=== PATIENT | female | born 1995 | race Caucasian/White ===

== ENCOUNTER 2017-02-25 23:26 | Emergency (ER) | payer OTHER ==
[2017-02-26 02:58] VITALS: BP 130/80
== END 2017-02-26 02:58 | disposition home or self-care (01) ==
LOC: ED 23:26
DX: S83.92XA Sprain of unspecified site of left knee, initial encounter (principal); I10 Essential (primary) hypertension; D35.2 Benign neoplasm of pituitary gland; Z79.899 Other long term (current) drug therapy; Z88.2 Allergy status to sulfonamides; Z88.6 Allergy status to analgesic agent; X50.1XXA Overexertion from prolonged static or awkward postures, initial encounter; Y93.89 Activity, other specified; Y92.89 Other specified places as the place of occurrence of the external cause; Y99.8 Other external cause status
CPT/HCPCS: Q0092

== ENCOUNTER 2018-01-15 17:11 | Emergency (ER) | payer OTHER ==
[~2018-01-15] VITALS: Ht 152.4 cm; Wt 42.2 kg
[2018-01-15 17:13] VITALS: Ht 152.4 cm; Wt 42.2 kg
[2018-01-15 18:05] LABS: BASOPHIL % 0.1 % (0-2); PLATELET COUNT 218 x10^3mcL (130-400); RED CELL DISTRIBUTION WIDTH 13.5 % (11.5-14.5)
[2018-01-15 18:13] LABS: microscopic required? YES; urine erythrocyte 2+ (NEGATIVE)
[2018-01-15 18:20] LABS: CALCIUM 8.4 mg/dL (8.5-10.1); CHLORIDE SERUM 107 mmol/L (98-107); CREATININE SERUM 0.8 mg/dL (0.6-1.0); GFR1 > 60 mL/min; GLUCOSE SERUM 104 mg/dL (74-106); POTASSIUM SERUM 4.2 mmol/L (3.5-5.1); SODIUM SERUM 140 mmol/L (136-145)
[2018-01-15 18:25] LABS: ALKALINE PHOSPHATASE 74 U/L (46-116); ALT/SGPT 14 U/L (14-59); AST/SGOT 18 U/L (15-37)
[2018-01-15 18:27] LABS: ALBUMIN 2.5 g/dL (3.4-5.0); TOTAL PROTEIN, SERUM 5.5 g/dL (6.4-8.2)
[2018-01-15 18:37] LABS: BILIRUBIN TOTAL 0.11 mg/dL (0.20-1.00)
[2018-01-15 19:49] VITALS: BP 111/74
== END 2018-01-15 19:49 | disposition home or self-care (01) ==
LOC: ED 17:11
PROVIDERS: Emergency Medicine
DX: M32.9 Systemic lupus erythematosus, unspecified (principal); I10 Essential (primary) hypertension; Z88.6 Allergy status to analgesic agent; Z88.2 Allergy status to sulfonamides
CPT/HCPCS: 36415; 86431; J1100

== ENCOUNTER 2019-03-17 17:05 | Emergency (ER) | payer OTHER ==
[~2019-03-17] VITALS: Ht 152.4 cm; Wt 46.7 kg
[2019-03-17 17:25] VITALS: Ht 152.4 cm; Wt 46.7 kg
[2019-03-17 19:36] VITALS: BP 127/84
== END 2019-03-17 19:36 | disposition home or self-care (01) ==
LOC: ED 17:05
DX: M54.2 Cervicalgia (principal); M79.10 Myalgia, unspecified site; I10 Essential (primary) hypertension; Z88.2 Allergy status to sulfonamides; Z88.6 Allergy status to analgesic agent